=== PATIENT | male | born 1975 ===

== ENCOUNTER 2020-07-02 00:10 | Emergency (ER) | payer SELFPAY ==
--- NOTE | 2020-07-02 01:05 | NUR ---
investigator utility bill complaints: pt from lobby to room 13
[2020-07-02 01:35] VITALS: BP 106/65
--- NOTE | 2020-07-02 01:44 | NUR ---
Patient/Caregiver given discharge instructions and they have confirmed that they understand the instructions. Patient ambulatory with steady gait.
== END 2020-07-02 01:45 | disposition home or self-care (01) ==
LOC: ED 01:00
DX: S00.01XA Abrasion of scalp, initial encounter (principal); I44.4 Left anterior fascicular block; R94.31 Abnormal electrocardiogram [ECG] [EKG]; X58.XXXA Exposure to other specified factors, initial encounter; Y93.01 Activity, walking, marching and hiking; Y92.89 Other specified places as the place of occurrence of the external cause; Y99.8 Other external cause status
CPT/HCPCS: 93005; 99283